=== PATIENT | male | born 1995 | race African-American/Black ===

== ENCOUNTER 2020-04-24 04:42 | Emergency (ER) | payer OTHER ==
[~2020-04-24] VITALS: Ht 177.8 cm; Wt 65.8 kg
--- NOTE | 2020-04-24 04:44 | NUR ---
PATIENT REFUSED VITAL SIGNS AND PLACED ONTO MONITOR.
--- NOTE | 2020-04-24 04:44 | NUR ---
UNABLE TO OBTAIN TRIAGE INFORMATION DUE TO PATIENT'S REFUSAL,MD IS NOTIFIED. PATIENT IS ALSO PROVIDED WITH RISK AND BENEFITS OF NOT PROVIDING VITAL INFORMATION.
--- NOTE | 2020-04-24 04:45 | NUR ---
SEEN AND EXAMINED BY
--- NOTE | 2020-04-24 04:57 | NUR ---
Patient discharged to home in stable condition. Written and verbal after care instructions given. Patient verbalizes understanding of instruction.
--- NOTE | 2020-04-24 05:13 | NUR ---
PATIENT DENIES BEING HOMELESS. PATIENT STATED THAT HE NEEDS CLOTHES. CLOTHES ARE GIVEN. PATIENT STATED THAT HE WANTS APPLE JUICE, APPLE JUICE ARE GIVEN.
== END 2020-04-24 06:06 | disposition home or self-care (01) ==
LOC: ER 04:44
DX: B65.9 Schistosomiasis, unspecified (principal); Z02.89 Encounter for other administrative examinations

== ENCOUNTER 2021-08-04 20:57 | Emergency (ER) | payer MEDICARE, OTHER ==
[~2021-08-04] VITALS: Ht 172.7 cm; Wt 72.6 kg
[2021-08-04 21:05] VITALS: BP 140/86
--- NOTE | 2021-08-04 21:05 | NUR ---
DENISE FROM [facility] C/O +S/I DENIES H/I SEEKING VOLUNTARY ADMISSION TO [facility]. PT A/OX4. AMBULATORY WITH STEADY GAIT
--- NOTE | 2021-08-04 21:23 | NUR ---
COVID-19 ANTIGEN SWAB COLLECTED AND SENT TO LAB
[2021-08-04 21:52] LABS: BASOPHILS % (AUTO) 0.6 % (0.0-2.0); EOSINOPHILS % (AUTO) 2.6 % (0.0-6.0); HEMATOCRIT 35 % (39-51); HEMOGLOBIN 11.8 g/dL (13.5-17.5); LYMPHOCYTES # (AUTO) 3.3 K/uL (0.8-4.8); LYMPHOCYTES % (AUTO) 62.8 % (20.0-44.0); MEAN CORPUSCULAR HGB CONC 33 g/dl (31.0-36.0); MEAN CORPUSCULAR VOLUME 88 fL (80-96); MONOCYTES # (AUTO) 0.5 K/uL (0.1-1.30); MONOCYTES % (AUTO) 10.1 % (2.0-12.0); NEUTROPHILS # (AUTO) 1.3 K/uL (1.8-8.9); NEUTROPHILS % (AUTO) 23.9 % (43.0-81.0); PLATELET COUNT (AUTO) 203 K/uL (150-450); RED BLOOD CELL COUNT(AUTO) 4.01 MIL/uL (4.5-6.0); WHITE BLOOD COUNT (AUTO) 5.3 K/uL (4.3-11.0)
[2021-08-04 22:02] LABS: BILIRUBIN,URINE NEGATIVE (NEGATIVE); COLOR,URINE YELLOW (YELLOW); LEUKOCYTE ESTERASE ,URINE NEGATIVE (NEGATIVE); NITRITE, URINE NEGATIVE (NEGATIVE); PH,URINE 6.5 (5.0-8.0); PROTEIN,URINE NEGATIVE (NEGATIVE); UGLUCOSE NEGATIVE (NEGATIVE); UROBILINOGEN,URINE 0.2 EU/dL (0.2)
[2021-08-04 22:20] LABS: BACTERIA,URINE Rare /HPF (None Seen); RBC,URINE NONE SEEN /HPF (0-2); SQUAMOUS EPITHELIAL CELL,UR Few /HPF (None Seen); WBC,URINE NONE SEEN /HPF (0-3)
[2021-08-04 23:02] LABS: ALANINE AMINOTRANSFERASE 15 U/L (12-78); ALBUMIN 2.9 g/dL (3.4-5.0); ALCOHOL, BLOOD < 3 mg/dL (0-0); ALKALINE PHOSPHATASE 124 U/L (46-116); ASPARTATE AMINOTRANSFERASE 14 U/L (15-37); BILIRUBIN,TOTAL 0.1 mg/dL (0.2-1.0); CALCIUM, SERUM 8.3 mg/dL (8.5-10.1); CARBON DIOXIDE 27 mmol/L (21-32); CHLORIDE 105 mmol/L (98-107); CREATININE 0.7 mg/dL (0.6-1.3); GLUCOSE 101 mg/dL (74-106); POTASSIUM 3.5 mmol/L (3.5-5.1); SODIUM SERUM 137 mmol/L (136-145); TOTAL PROTEIN, SERUM 7.8 g/dL (6.4-8.2); UREA NITROGEN, BLOOD 15 mg/dL (7-18)
[2021-08-04 23:09] LABS: ACETAMINOPHEN < 2 ug/ml (10-30)
--- NOTE | 2021-08-05 00:22 | NUR ---
FACESHEET AND CLINICALS FAXED TO [facility].
--- NOTE | 2021-08-05 03:21 | NUR ---
PT ACCEPTED TO [facility] BY DR HANDY. # FOR REPORT UNIT 2
--- NOTE | 2021-08-05 03:27 | NUR ---
PER [facility] DISPATCH PT WILL BE TAKEN TO [facility] IN 45 MINS
--- NOTE | 2021-08-05 04:27 | NUR ---
report given to nurse rosas
--- NOTE | 2021-08-05 05:05 | NUR ---
REPORT GIVEN TO EMS AT BEDSIDE
== END 2021-08-05 05:05 ==
LOC: ER 21:01
DX: R45.851 Suicidal ideations (principal); Z59.00 Homelessness unspecified; Z20.822 Contact with and (suspected) exposure to COVID-19
CPT/HCPCS: 36415; 80048; 80076; 80143; 80307; 80320; 81001; 85025; 87426; 99285; C9803; G0480